=== PATIENT | female | born 1955 | race Caucasian/White ===

== ENCOUNTER → 2019-03-01 | Outpatient (CLI) | payer OTHER | LOC: EDSEX 08:33 → CAT 08:33 | DX: Z13.6 Encounter for screening for cardiovascular disorders (principal); I25.10 Atherosclerotic heart disease of native coronary artery without angina pectoris; E78.00 Pure hypercholesterolemia, unspecified ==

== ENCOUNTER → 2020-02-08 | Outpatient (CLI) | payer OTHER, BC ==
[~2020-02-08] MED LIST: AMLODIPINE BESY10 MG PO; ASA81BEC PO; CITRATE OF MAG296 M1 PO; COQ-10100 MG PO; FISH OIL 1,2001 EAC4 PO; LEVO-T100 MCG PO; LEVOXYL150 MCG PO; LOSARTAN POTAS100 MG PO; NEURONTIN 400M400 M2 PO; PROBIOTIC1 EAC7 PO; REPATHA SY140 MG/1 M SUBQ; SEROQUEL 100 M100 M1 PO; SEROQUEL XR150 MG PO; VALIUM5 MG PO; VITAMIN D350 MCG PO; WOMEN'S DAILY1 EACH PO
== END ==
LOC: LAB 10:36
PROVIDERS: ATTEND Orthopaedic Surgery
DX: Z01.812 Encounter for preprocedural laboratory examination (principal); Z20.828 Contact with and (suspected) exposure to other viral communicable diseases

== ENCOUNTER 2020-02-13 11:26 | Day surgery (SDC) | payer OTHER, BC ==
[2020-02-01 09:22] LABS: URINE BILIRUBIN NEGATIVE (Negative); URINE BLOOD NEGATIVE (Negative); URINE CLARITY CLEAR; URINE COLOR YELLOW; URINE GLUCOSE-RANDOM* NEGATIVE (Negative); URINE KETONES NEGATIVE (Negative); URINE LEUKOCYTES-REFLEX NEGATIVE (Negative); URINE NITRITE-REFLEX NEGATIVE (Negative); URINE PROTEIN (DIPSTICK) NEGATIVE (Negative); URINE SPECIFIC GRAVITY 1.015 (1.005-1.035); URINE UROBILINOGEN 0.2 E.U./dl (0.2-1.0)
[2020-02-01 09:23] LABS: HEMATOCRIT 38.5 % (37.0-47.0); HEMOGLOBIN 12.8 gm/dL (12.0-15.0); MCH 28.5 pg (26.0-34.0); MCHC 33.2 g/dL (28.0-37.0); RBC 4.48 mil/uL (4.20-5.00); RDW 15.1 % (10.5-14.5); WBC 5.6 thou/uL (4.0-11.0)
[2020-02-01 09:37] LABS: ALBUMIN 4.1 g/dL (3.4-5.0); CALCIUM 9.5 mg/dL (8.5-10.1); CREATININE 1.1 mg/dL (0.6-1.0); TOTAL BILIRUBIN 0.6 mg/dL (0.2-1.0); TOTAL PROTEIN 6.9 g/dL (6.4-8.2)
[2020-02-01 09:38] LABS: PROTIME 10.7 Seconds (9.3-11.4)
[2020-02-02 01:06] LABS: GLYCOHEMOGLOBIN (HGB A1C) 6.2 % (4.8-5.6)
[~2020-02-13] VITALS: Ht 167.6 cm; Wt 107.0 kg
[2020-02-13 12:40] VITALS: BP 136/93
[2020-02-13 18:45] VITALS: BP 150/81
[2020-02-13 20:00] VITALS: BP 151/82
--- NOTE | 2020-02-13 20:01 | NUR ---
PATIENT ADMITTED FROM OR WITH RIGHT TOTAL KNEE, NAE DRESSING, KNEE HIGH MINERVA HOSE, SCD'S, AND POLAR CARE IN PLACE. PATIENT C/O OF PAIN WITH RIGHT KNEE, HYDROCODONE 1 TABLET GIVEN DURING ADMISSION. PATIENT GIVEN BOX LUNCH, C/O GAS, BUT HAD LEMON-GAMBELL SODA AND RESOLVED. RIGHT HAND IV IN PLACE, D51/2 NS AT 100CC/HR. ADMISSION DONE, REPORT GIVEN TO SANTIAGO/GM.
--- NOTE | 2020-02-14 01:26 | NUR ---
ASSUMED CARE OF PT @2200. PT A&OX4. IV INTACT WITH FLUIDS INFSUING. PT RATES PAIN 1/10 DENIES N/V. BOX LUNCH GIVEN. IV INTACT AND FLUIDS INFUSING. SCD'S, MINERVA HOSE AND POLAR PACK IN PLACE. FALL PREC MAINTAINED, CALL LIGHT AT REACH WILL CONT WITH POC TILL EOS.
[2020-02-14 03:01] VITALS: BP 148/89
[2020-02-14 05:31] LABS: HEMATOCRIT 35.8 % (37.0-47.0); HEMOGLOBIN 11.7 gm/dL (12.0-15.0); MCH 28.4 pg (26.0-34.0); MCHC 32.7 g/dL (28.0-37.0); MCV 86.9 fL (80.0-100.0); RBC 4.12 mil/uL (4.20-5.00); RDW 14.6 % (10.5-14.5); WBC 10.8 thou/uL (4.0-11.0)
[2020-02-14 07:09] VITALS: BP 147/84
--- NOTE | 2020-02-14 09:27 | NUR ---
ASSESSMENT: CM REVIEWED CHART AND SPOKE WITH PATIENT. PT IS ALERT AND ORIENTED X4. PT REPORTS LIVING IN A HOUSE WITH HER SON. PT REPORTS 2 STEPS WITH NO HANDRAILS TO ENTER. PT REPORTS ONCE INSIDE SHE HAS NO STEPS SHE HAS TO USE. PT REPORTS THAT SHE WOULD LIKE CRUTCHES TO GO HOME WITH RATHER THEN A WALKER HER HOME IS SMALL. PHYSICAL THERAPY IS TO WORK WITH PATIENT AND DETERMINE NEEDED EQUIPTMENT. PT REPORTS NO PREFERENCE OF [email or web address]. PT REPORTS SHE HAS OUTPATIENT THERAPY ARRANGED AT [facility]. PT IS A POSSIBLE DISCHARGE TODAY IF SHE DOES WELL WITH THERAPY. CM WILL CONTINUE TO FOLLOW.
[2020-02-14 09:41] VITALS: BP 147/84
[2020-02-14 10:00] VITALS: BP 147/84
--- NOTE | 2020-02-14 10:17 | NUR ---
DISCHARGE PAPERS REVIEWED SIGNED AND COPY IN CHART. IV ACSESS DCD ALL BELONGINGS INCLUDING 1 PAIR OF CRUTCHES SENT WITH PATIENT. CALL TO SON WHO WILL PICK HER UP. NO PAIN OR RESP DISTRESS AT DISCHARGE,
[2020-02-14 10:41] VITALS: BP 147/84
[2020-02-14 10:47] VITALS: BP 147/84
--- NOTE | 2020-02-20 17:58 | O ---
[facility] [place] [address] OPERATIVE REPORT Name: GERTRUDIS LUCAS Room #: [facility] Eren.#: [id number] Admission: 02/13/20 Attend Phys: Wilmer Huizar MD Discharge: 02/14/20 Date of : 57 Report #: [id number] THIS REPORT FOR: cc: FAM - Family physician unknown FAM - Family physician unknown Wilmer Huizar MD ~ CC: RAMESH unknown ARJUN SERJIO Huizar DATE OF SERVICE: 02/13/2020 PREOPERATIVE DIAGNOSIS: Right knee osteoarthritis. POSTOPERATIVE DIAGNOSIS: Right knee osteoarthritis. PROCEDURE PERFORMED: Right total knee arthroplasty using Navio robotic assistance. SURGEON: Wilmer Huizar MD. SECURITY OPERATIONS MANAGER: Vani Morocho PA-C. INDICATIONS FOR SECURITY OPERATIONS MANAGER: Throughout the case, extensive retraction and manipulation of the knee was required. This was afforded to me by my visual merchandising assistant. ANESTHESIA: LMA with an adductor canal block. IMPLANTS: Hay [employer]hew size 4 Journey II BCS Oxinium femur, size 3 tibia, a size 11 polyethylene and size 29 patella. TOURNIQUET TIME: 48 minutes. COMPLICATIONS: None. SPECIMENS: None. CONDITION UPON LEAVING THE OPERATING ROOM: Stable. INDICATIONS FOR PROCEDURE: The patient is a 64-year-old female with right knee osteoarthritis. She had failed conservative measures for this and after discussion with her, she elected for right total knee arthroplasty. DESCRIPTION OF PROCEDURE: Risks, benefits, alternatives, and complications were discussed in detail with the patient including but not limited to risk of anesthesia, risk of damage to nerves, arteries, blood vessels, risk for [facility] [address] [place] [address] OPERATIVE REPORT Name: GERTRUDIS LUCAS Room #: [facility] M.R.#: [id number] Admission: 02/13/20 Attend Phys: Wilmer Huizar MD Discharge: 02/14/20 Date of : 57 Report #: [id number] infection, bleeding, risk for continued knee pain, need for reoperation. Informed consent was obtained from the patient. Right knee was appropriately marked in the preoperative holding area. IV Ancef was given for preoperative antibiotics. She was brought to the operating room and placed in supine position on operating room table. LMA anesthesia was induced without complication. Tourniquet was placed on the right thigh. Right lower extremity was prepped and draped in normal sterile fashion. Timeout was performed properly identifying the patient, procedure as well as the instrumentation and implants. All in the operating room were in agreement. Right lower extremity was exsanguinated, tourniquet was inflated. Tourniquet time was 48 minutes. Standard midline approach to the knee was made with 10 blade through the skin. Dissection was taken down sharply to the fascia. Deep flaps were developed medially and laterally. Fresh 10 blade was used to make a medial parapatellar arthrotomy and the knee was inspected. There was severe tricompartmental osteoarthritis. ACL and PCL were removed sharply. Reference pins were placed in the femur and the tibia. The knee was then digitally mapped using the [employer] robotic system. Intraoperative plan was made and we sized the size 4 femur with a size 3 tibia, and a size 10 spacer. After acceptance of the intraoperative plan, the distal femoral cut was made with a Navio lance. Distal femoral cutting block was pinned in place and the chamfer cuts were made. Attention was turned to the tibia. Remainder of the menisci removed with Bovie cautery. Tibial resection guide was pinned in place using the Navio for placement and tibial resection was made. After this, flexion and extension gaps were then checked and found to have good balance in flexion and extension both medially and laterally. Tibia was sized, found to be a size 3. A size 3 tibial trial was placed, pinned and punched. Size 4 femoral trial was placed and the box cut was made. This was then trialed with a size 10 and then a size 11 polyethylene and size 11 polyethylene demonstrated 1-2 millimeter of laxity medially and laterally throughout range of motion. A 9 mm was resected from the posterior surface of the patella and a size 29 patellar trial button was placed. Knee was taken through range of motion, found to be stable, found to have good patellar tracking. Trial components were removed. Bony ends were thoroughly irrigated with normal saline. Final size 3 tibia, size 4 Journey II BCS Oxinium femur, and a size 29 patella were cemented in place using standard cementation techniques. While the cement cured, a periarticular injection consisting of morphine, ropivacaine, epinephrine and Toradol was placed around the knee joint capsule. After the cement cured, tourniquet was deflated. Hemostasis was obtained with Bovie cautery. A final size 11 polyethylene was placed. A gram of vancomycin was placed deep in the joint. Fascia was closed with 0 Vicryl, skin was closed with 2-0 Vicryl, skin staple and a NAE dressing was applied. The patient tolerated this procedure well and went to recovery room under care of anesthesia postoperatively. <ELECTRONICALLY SIGNED> By: Wilmer Huizar MD 02/20/20 1758 1227 1249 Wilmer Huizar MD /nt
== END 2020-02-14 10:30 | disposition home or self-care (01) ==
LOC: OR 11:26 → TBA 11:31 → OR 15:37 → 4S 17:38 → OR 02-14 10:30
PROVIDERS: ATTEND Orthopaedic Surgery
DX: M17.11 Unilateral primary osteoarthritis, right knee (principal); M25.561 Pain in right knee; G47.30 Sleep apnea, unspecified; Z98.890 Other specified postprocedural states; Z79.899 Other long term (current) drug therapy; Z88.8 Allergy status to other drugs, medicaments and biological substances
CPT/HCPCS: 10102; 50010; 50101; 50415; 50954; 51130; 51225; 51320; 51412; 53000; 53078; 53365; 54118; 56527; 56528; 57095; 57103; 57110; 57127; 57180; 62110; 62900; 64042; 70005

== ENCOUNTER → 2020-04-16 | Outpatient (CLI) | payer OTHER, BC ==
[~2020-04-16] MED LIST changes: +BUPROPION XL300 MG PO; +BUSPIRONE HCL15 MG PO; +QUETIAPINE FUM100 MG PO
[2020-04-16 09:39] LABS: HEMOGLOBIN 12.9 gm/dL (12.0-15.0); MCH 28.3 pg (26.0-34.0); MCHC 32.2 g/dL (28.0-37.0); MCV 87.7 fL (80.0-100.0); RBC 4.56 mil/uL (4.20-5.00); RDW 14.2 % (10.5-14.5); WBC 6.1 thou/uL (4.0-11.0)
[2020-04-16 09:41] LABS: URINE BILIRUBIN NEGATIVE (Negative); URINE BLOOD TRACE (Negative); URINE CLARITY CLEAR; URINE COLOR YELLOW; URINE GLUCOSE-RANDOM* NEGATIVE (Negative); URINE KETONES NEGATIVE (Negative); URINE NITRITE-REFLEX NEGATIVE (Negative); URINE PROTEIN (DIPSTICK) TRACE (Negative); URINE SPECIFIC GRAVITY >= 1.030 (1.005-1.035); URINE UROBILINOGEN 0.2 E.U./dl (0.2-1.0)
[2020-04-16 09:44] LABS: URINE LEUKOCYTES-REFLEX 2+ (Negative)
[2020-04-16 09:48] LABS: PROTIME 10.3 Seconds (9.3-11.4)
[2020-04-16 09:53] LABS: ALBUMIN 4.1 g/dL (3.4-5.0); CALCIUM 10.2 mg/dL (8.5-10.1); CREATININE 1.4 mg/dL (0.6-1.0); POTASSIUM 4.2 mmol/L (3.5-5.1)
[2020-04-16 10:14] LABS: CASTS None Seen /LPF (None Seen); CRYSTALS None Seen /LPF (None Seen); MUCUS 4-6 Moderate strn/LPF (None Seen); SQUAMOUS 0-3 Few /LPF (0-3)
[2020-04-16 10:16] LABS: BACTERIA-REFLEX 1-9 Few /HPF (None Seen); URINE RBC None Seen /HPF (0-2); URINE WBC-REFLEX 6-15 Few /HPF (0-5)
[2020-04-16 10:17] LABS: RENAL EPITHELIAL CELLS 0-3 Few /LPF (None Seen)
[2020-04-17 01:06] LABS: GLYCOHEMOGLOBIN (HGB A1C) 5.7 % (4.8-5.6)
== END ==
LOC: LAB 09:00
PROVIDERS: ATTEND Orthopaedic Surgery
DX: Z01.818 Encounter for other preprocedural examination (principal)

== ENCOUNTER → 2020-04-25 | Outpatient (CLI) | payer OTHER, BC | LOC: LAB 07:22 | PROVIDERS: ATTEND Orthopaedic Surgery | DX: Z01.812 Encounter for preprocedural laboratory examination (principal); Z20.822 Contact with and (suspected) exposure to COVID-19 ==

== ENCOUNTER 2020-04-30 07:23 | Day surgery (SDC) | payer OTHER, BC ==
[2020-04-16 09:39] LABS: HEMOGLOBIN 12.9 gm/dL (12.0-15.0); MCH 28.3 pg (26.0-34.0); MCHC 32.2 g/dL (28.0-37.0); MCV 87.7 fL (80.0-100.0); RBC 4.56 mil/uL (4.20-5.00); RDW 14.2 % (10.5-14.5); WBC 6.1 thou/uL (4.0-11.0)
[2020-04-16 09:41] LABS: URINE BILIRUBIN NEGATIVE (Negative); URINE BLOOD TRACE (Negative); URINE CLARITY CLEAR; URINE COLOR YELLOW; URINE GLUCOSE-RANDOM* NEGATIVE (Negative); URINE KETONES NEGATIVE (Negative); URINE NITRITE-REFLEX NEGATIVE (Negative); URINE PROTEIN (DIPSTICK) TRACE (Negative); URINE SPECIFIC GRAVITY >= 1.030 (1.005-1.035); URINE UROBILINOGEN 0.2 E.U./dl (0.2-1.0)
[2020-04-16 09:44] LABS: URINE LEUKOCYTES-REFLEX 2+ (Negative)
[2020-04-16 09:48] LABS: PROTIME 10.3 Seconds (9.3-11.4)
[2020-04-16 09:53] LABS: ALBUMIN 4.1 g/dL (3.4-5.0); CALCIUM 10.2 mg/dL (8.5-10.1); CREATININE 1.4 mg/dL (0.6-1.0); POTASSIUM 4.2 mmol/L (3.5-5.1)
[2020-04-16 10:14] LABS: CASTS None Seen /LPF (None Seen); CRYSTALS None Seen /LPF (None Seen); MUCUS 4-6 Moderate strn/LPF (None Seen); SQUAMOUS 0-3 Few /LPF (0-3)
[2020-04-16 10:16] LABS: BACTERIA-REFLEX 1-9 Few /HPF (None Seen); URINE RBC None Seen /HPF (0-2); URINE WBC-REFLEX 6-15 Few /HPF (0-5)
[2020-04-16 10:17] LABS: RENAL EPITHELIAL CELLS 0-3 Few /LPF (None Seen)
[2020-04-17 01:06] LABS: GLYCOHEMOGLOBIN (HGB A1C) 5.7 % (4.8-5.6)
[~2020-04-30] VITALS: Ht 170.2 cm; Wt 103.0 kg
[2020-04-30 08:20] VITALS: BP 150/105
[2020-04-30 13:00] VITALS: BP 166/82
--- NOTE | 2020-04-30 13:42 | NUR ---
Pt transferred from PACU approx 1245. Pt a&ox4. Pain under control. Dressing c/d/i. Polar care in place. IVF infusing. BP elevated but trending down. t states she has high blood pressure at home. Worked with physical therapy and was cleared to go home. Awaiting discharge orders.
[2020-04-30 15:25] VITALS: BP 166/82
--- NOTE | 2020-04-30 16:11 | NUR ---
pt was s/p tka and then discharged off the unit as pt was wanting to go home today. pt was evaluated by physical therapy and had crutches at home. pt left unit prior to cm seeing patient. per notes pt lived at home with her son and had no needs from cm.
--- NOTE | 2020-05-01 12:48 | O ---
[facility] [place] [address] OPERATIVE REPORT Name: GERTRUDIS LUCAS Room #: [facility] Ac#: [id number] Admission: 04/30/20 Attend Phys: Wilmer Huizar MD Discharge: 04/30/20 Date of : 57 Report #: [id number] THIS REPORT FOR: cc: FAM - Family physician unknown FAM - Family physician unknown Wilmer Huizar MD ~ DATE OF SERVICE: 04/30/2020 PREOPERATIVE DIAGNOSIS: Left knee osteoarthritis. POSTOPERATIVE DIAGNOSIS: Left knee osteoarthritis. PROCEDURE: Left total knee arthroplasty using Navio robotic assistance. SURGEON: Wilmer Huizar MD. HVAC DESIGN ENGINEER: Vani Morocho PA-C. INDICATIONS FOR HVAC DESIGN ENGINEER: Throughout the case, extensive retraction and manipulation of the knee was required. This was afforded to me by my operator/assistant foreman. ANESTHESIA: LMA with an adductor canal block. IMPLANTS: Hay [employer] Nephew size 4 Oxinium Journey II BCS femur, a size 3 tibia, size 12 polyethylene, and size 29 patella. TOURNIQUET TIME: 49 minutes. ESTIMATED BLOOD LOSS: 25 mL. COMPLICATIONS: None. SPECIMENS: None. CONDITION UPON LEAVING THE OPERATING ROOM: Stable. INDICATIONS FOR PROCEDURE: The patient is a 64-year-old female with left knee osteoarthritis. She had failed conservative measures for this; and after discussion with her, she elected for left total knee arthroplasty. DESCRIPTION OF PROCEDURE: Risks, benefits, alternatives, and complications were discussed in detail with the patient including, but not limited to, risk of anesthesia, risk of damage to nerves, arteries, blood vessels, risk for infection, bleeding, risk for continued knee pain, and need for reoperation. Informed consent was obtained from the patient. Left knee was appropriately [facility] [address] [address] OPERATIVE REPORT Name: GERTRUDIS LUCAS Room #: DEP [facility] [place] Ac#: [id number] Admission: 04/30/20 Attend Phys: Wilmer Huizar MD Discharge: 04/30/20 Date of : 57 Report #: [id number] marked in the preoperative holding area. IV Ancef was given for preoperative antibiotics. Adductor canal block was placed by Anesthesia. She was brought to the operating room and placed in the supine position on operating room table. LMA anesthesia was induced without complication. Tourniquet was placed on the left thigh. Left lower extremity was prepped and draped in normal sterile fashion. Time-out was performed properly identifying the patient and procedure as well as the instrumentation and implants. All in the operating room were in agreement. Left lower extremity was exsanguinated, tourniquet was inflated. Tourniquet time was 49 minutes. Standard midline approach to knee was made with 10 blade through the skin. Dissection was taken down sharply to the fascia and deep flaps were developed medially and laterally. Fresh 10 blade was used to make a medial parapatellar arthrotomy and the knee was inspected. There was severe tricompartment osteoarthritis. ACL and PCL were removed sharply. Reference pins were placed in the femur and the tibia. The knee was then digitally mapped using the [employer] robotic system. Intraoperative plan was made and we sized a size 4 femur with a size 3 tibia and a 10 spacer. After acceptance of the intraoperative plan, the distal femoral cut was made with Navio bur. Distal femoral cutting block was pinned in place using the Navio for placement and chamfer cuts were made. Attention was turned to the tibia. Remainder of the menisci were removed with Bovie cautery. Tibial resection guide was pinned in place using the Navio for placement and tibial resection was made. Flexion and extension gaps were then checked and found to have good balance in flexion and extension, both medially and laterally. Tibia was sized, found to be a size 3. A size 3 tibial trial was placed, pinned and punched. Size 4 femoral trial was placed and box cut was made. This was then trialed with a size 12 using a size 10 up to a size 12 polyethylene, and size 12 polyethylene demonstrated good balance both medially and laterally throughout range of motion. 9 mm of bone was resected from the posterior surface of the patella and a size 29 patellar trial button was placed. The knee was taken through range of motion, found to be stable, found to have good patellar tracking. Trial components were removed. Bony ends were thoroughly irrigated with normal saline. A final size 3 tibia, size 4 Journey II BCS Oxinium femur, and a size 29 patella were cemented in place using standard cementation techniques. While the cement cured, a periarticular injection consisting of morphine, ropivacaine, epinephrine, and Toradol was placed around the knee joint capsule. After the cement cured, the tourniquet was deflated. Hemostasis was obtained with Bovie cautery. Final size 12 polyethylene was placed. A gram of vancomycin was placed deep in the joint. Fascia was closed with 0 Vicryl, skin was closed with 2-0 Vicryl, skin staple and a NAE dressing was applied. The patient tolerated this procedure well and went to recovery room under care of anesthesia postoperatively. <ELECTRONICALLY SIGNED> By: Wilmer Huizar MD 05/01/20 1248 [id number] 1622 Wilmer Huizar MD /nt
== END 2020-04-30 16:21 | disposition home or self-care (01) ==
LOC: OR 07:23 → TBA 07:24 → OR 08:24 → 4S 12:59 → OR 13:54
PROVIDERS: ATTEND Orthopaedic Surgery
DX: M17.12 Unilateral primary osteoarthritis, left knee (principal); M25.562 Pain in left knee; I12.9 Hypertensive chronic kidney disease with stage 1 through stage 4 chronic kidney disease, or unspecified chronic kidney disease; N18.2 Chronic kidney disease, stage 2 (mild); F41.1 Generalized anxiety disorder; E78.5 Hyperlipidemia, unspecified; F32.9 Major depressive disorder, single episode, unspecified; E78.00 Pure hypercholesterolemia, unspecified; K21.9 Gastro-esophageal reflux disease without esophagitis; E03.9 Hypothyroidism, unspecified; K75.81 Nonalcoholic steatohepatitis (NASH); G47.33 Obstructive sleep apnea (adult) (pediatric); E21.0 Primary hyperparathyroidism; E66.9 Obesity, unspecified; Z96.651 Presence of right artificial knee joint; Z98.890 Other specified postprocedural states; Z79.899 Other long term (current) drug therapy; Z68.38 Body mass index [BMI] 38.0-38.9, adult; Z90.710 Acquired absence of both cervix and uterus; Z90.49 Acquired absence of other specified parts of digestive tract
CPT/HCPCS: 50010; 50101; 50415; 50954; 51130; 51225; 51320; 51412; 52001; 52282; 53000; 53078; 53368; 56527; 56528; 57095; 57103; 57110; 57127; 57180; 62110; 62900; 64039; 64043; 70005